=== PATIENT | male | born 1990 | race Caucasian/White ===

== ENCOUNTER → 2022-06-14 | Outpatient (CLI) | payer OTHER ==
[2022-06-14 16:12] LABS: HEMOGLOBIN 15.1 g/dL (13.5-18.0); MEAN PLATELET VOLUME 9.1 fl (7.4-10.4); RED BLOOD COUNT 4.81 M/mm3 (4.20-5.60); RED CELL DISTRIBUTION WIDTH 12.1 % (11.5-14.5); WHITE BLOOD COUNT 6.3 K/mm3 (4.8-10.8)
[2022-06-14 16:25] LABS: POTASSIUM 4.1 mmol/L (3.5-5.1)
[2022-06-14 16:26] LABS: ALBUMIN 4.5 g/dL (3.5-5.0)
[2022-06-14 16:27] LABS: CALCIUM 9.3 mg/dL (8.3-10.5)
[2022-06-14 16:28] LABS: TOTAL PROTEIN 7.3 g/dL (6.4-8.3)
[2022-06-14 16:30] LABS: TOTAL BILIRUBIN 0.5 mg/dL (0.2-1.2)
== END ==
LOC: LAB 15:59
PROVIDERS: Family Medicine
DX: Z00.00 Encounter for general adult medical examination without abnormal findings (principal); Z13.220 Encounter for screening for lipoid disorders; Z13.1 Encounter for screening for diabetes mellitus; J30.9 Allergic rhinitis, unspecified; R25.1 Tremor, unspecified; Z83.2 Family history of diseases of the blood and blood-forming organs and certain disorders involving the immune mechanism